=== PATIENT | female | born 1965 | race Caucasian/White ===

== ENCOUNTER 2017-08-14 11:30 | Inpatient (IN) | payer OTHER ==
[~2017-08-14] VITALS: Ht 170.2 cm; Wt 138.4 kg
[2017-08-14 13:17] LABS: APPEARANCE SL.HAZY ((CLEAR)); BILIRUBIN NEGATIVE; BLOOD SMALL; COLOR YELLOW ((YELLOW)); GLUCOSE (STRIP) NEGATIVE; KETONES NEGATIVE; LEUKOCYTES MODERATE; NITRITE POSITIVE; PROTEIN (STRIP) 30; SPECIFIC GRAVITY 1.018 (1.000-1.030); UROBILINOGEN 0.2 MG/DL (0.2-1.0)
[2017-08-14 13:32] LABS: BACTERIA 2+ /HPF; EPITHELIAL CELLS RARE /HPF; HYALINE CASTS 0-5 /LPF; MUCUS TRACE /LPF; WHITE BLOOD CELLS TNTC /HPF (0-5)
[2017-08-14 13:39] LABS: HEMATOCRIT 43.7 % (36.0-46.0); HEMOGLOBIN 15.1 G/DL (11.9-15.5); MCH 31.5 PG (29.0-34.0); MCHC 34.6 G/DL (30.0-36.0); PLATELET COUNT 231 K/uL (156-360); RBC DIS.WIDTH-CV 12.6 % (11.8-14.6); RBC DIS.WIDTH-SD 41.8 % (39-53); WHITE BLOOD COUNT 7.7 K/uL (4.1-10.2)
[2017-08-14 13:51] LABS: CHLORIDE 104 mEq/L (99-109); SODIUM 141 mEq/L (136-147)
[2017-08-14 13:53] LABS: GLUCOSE 84 mg/dL (70-99)
[2017-08-14 13:57] LABS: CREATININE 0.8 mg/dL (0.6-1.3); GFR ESTIMATE (CALCULATED) > 59 mL/min/
[2017-08-14 13:58] LABS: UREA NITROGEN (BUN) 16 mg/dL (9-23)
[2017-08-14 14:18] LABS: ERTH.SED.RATE 56 MM/HR (0-30)
[2017-08-14] MEDS ORDERED: TERBINAFINE HC250 MG PO (17:07)
[2017-08-14] MEDS ORDERED: IBUPROFEN800 MG PO (17:07)
[2017-08-14] MEDS ORDERED: VENTOLIN HFA18 GM IH (17:08)
[2017-08-14] MEDS ORDERED: LEVOTHYROXINE100 MCG PO (17:08)
[2017-08-14] MEDS ORDERED: METHADONE H5 MG/5 ML PO (17:11)
[2017-08-14 20:30] VITALS: BP 141/65
[2017-08-14 21:01] LABS: FOLIC ACID (FOLATE) 7.9 NG/ML (5.0-22.0)
[2017-08-15 00:07] VITALS: BP 142/81
[2017-08-15 04:34] VITALS: BP 142/85
[2017-08-15 06:51] LABS: BASOPHIL (%) 0.3 % (0-1); EOSINOPHIL (%) 2.6 % (0-5); EOSINOPHIL COUNT 0.2 K/uL (0-0.3); HEMOGLOBIN 13.5 G/DL (11.9-15.5); IMMATURE GRANULOCYTE (%) 0.3 % (0.0-0.7); LYMPHOCYTE (%) 31.4 % (15-42); MCH 29.9 PG (29.0-34.0); MCHC 32.1 G/DL (30.0-36.0); MCV 92.9 FL (83-99); MONOCYTE (%) 8.9 % (3-12); MONOCYTE COUNT 0.6 K/uL (0-0.8); NEUTROPHIL (%) 56.5 % (45-76); NEUTROPHIL COUNT 3.6 K/uL (1.8-6.4); PLATELET COUNT 202 K/uL (156-360); RBC DIS.WIDTH-CV 12.8 % (11.8-14.6); RBC DIS.WIDTH-SD 43.8 % (39-53); RED BLOOD COUNT 4.52 M/uL (3.80-5.20); WHITE BLOOD COUNT 6.4 K/uL (4.1-10.2)
[2017-08-15 07:14] LABS: ALBUMIN 3.9 G/DL (3.2-4.8); ALKALINE PHOSPHATASE 64 IU/L (3-129); ALT (GPT) 21 IU/L (3-49); AST (GOT) 21 IU/L (2-34); CHLORIDE 104 MEQ/L (99-109); CREATININE 0.8 MG/DL (0.6-1.3); GFR ESTIMATE (CALCULATED) > 59 mL/min/; POTASSIUM 4.4 MEQ/L (3.7-5.4); SODIUM 141 MEQ/L (136-147); TOTAL BILIRUBIN 0.4 MG/DL (0.0-1.0); TOTAL PROTEIN 6.6 G/DL (6.4-8.3); UREA NITROGEN (BUN) 17 mg/dL (9-23)
[2017-08-15 07:18] LABS: GLUCOSE 106 mg/dL (70-99)
[2017-08-15 09:37] LABS: LYME DISEASE SEROLOGY SCREEN NEGATIVE (NEGATIVE)
[2017-08-15 11:16] VITALS: BP 132/81
[2017-08-15 16:29] VITALS: BP 141/78
[2017-08-15 19:33] VITALS: BP 129/78
[2017-08-15 21:01] LABS: CSF PROTEIN 65 mg/dL (15-45)
[2017-08-15 21:05] LABS: APPEARANCE CLEAR, COLORLESS; CSF TUBE NUMBER TUBE #4; RED CELL COUNT 0 /MM^3 (0-1); WHITE CELL COUNT 10 /MM^3 (0-5)
[2017-08-15 21:06] LABS: GLUCOSE, CSF 77 mg/dL (40-80)
[2017-08-15 22:54] LABS: CSF EOSINOPHILS 0 % (0-25); MONONUCLEAR WBC'S 100 % (50-90); POLYNUCLEAR WBC'S 0 % (0-3)
[2017-08-15 23:36] VITALS: BP 146/72
[2017-08-16 04:03] VITALS: BP 125/84
[2017-08-16 06:04] LABS: BASOPHIL (%) 0.6 % (0-1); EOSINOPHIL (%) 3.4 % (0-5); EOSINOPHIL COUNT 0.2 K/uL (0-0.3); HEMATOCRIT 43.1 % (36.0-46.0); HEMOGLOBIN 14.1 G/DL (11.9-15.5); IMMATURE GRANULOCYTE (%) 0.4 % (0.0-0.7); LYMPHOCYTE (%) 40.1 % (15-42); LYMPHOCYTE COUNT 2.7 K/uL (1.0-2.8); MCH 30.8 PG (29.0-34.0); MCHC 32.7 G/DL (30.0-36.0); MCV 94.1 FL (83-99); MONOCYTE (%) 9.1 % (3-12); MONOCYTE COUNT 0.6 K/uL (0-0.8); NEUTROPHIL (%) 46.4 % (45-76); NEUTROPHIL COUNT 3.1 K/uL (1.8-6.4); PLATELET COUNT 202 K/uL (156-360); RBC DIS.WIDTH-CV 12.8 % (11.8-14.6); RBC DIS.WIDTH-SD 44.3 % (39-53); RED BLOOD COUNT 4.58 M/uL (3.80-5.20); WHITE BLOOD COUNT 6.7 K/uL (4.1-10.2)
[2017-08-16 06:28] LABS: CHLORIDE 101 MEQ/L (99-109); CREATININE 0.8 MG/DL (0.6-1.3); GFR ESTIMATE (CALCULATED) > 59 mL/min/; GLUCOSE 116 mg/dL (70-99); POTASSIUM 4.2 MEQ/L (3.7-5.4); SODIUM 136 MEQ/L (136-147); UREA NITROGEN (BUN) 17 mg/dL (9-23)
[2017-08-16 07:55] VITALS: BP 139/71
[2017-08-16 16:04] VITALS: BP 178/77
[2017-08-16 19:35] VITALS: BP 156/82
[2017-08-16 23:32] VITALS: BP 139/88
[2017-08-17 04:37] VITALS: BP 123/78
[2017-08-17 07:31] VITALS: BP 172/81
[2017-08-17 11:53] VITALS: BP 176/75
[2017-08-17 15:31] VITALS: BP 122/66
[2017-08-17 19:21] VITALS: BP 158/88
[2017-08-17 23:19] VITALS: BP 142/75
[2017-08-18 03:34] VITALS: BP 133/87
[2017-08-18 05:45] LABS: BASOPHIL (%) 0.1 % (0-1); EOSINOPHIL (%) 0 % (0-5); HEMATOCRIT 40.6 % (36.0-46.0); IMMATURE GRANULOCYTE (%) 1.3 % (0.0-0.7); LYMPHOCYTE (%) 12.2 % (15-42); LYMPHOCYTE COUNT 1.2 K/uL (1.0-2.8); MCH 29.9 PG (29.0-34.0); MCV 93.3 FL (83-99); MONOCYTE (%) 2.7 % (3-12); MONOCYTE COUNT 0.3 K/uL (0-0.8); NEUTROPHIL (%) 83.7 % (45-76); PLATELET COUNT 208 K/uL (156-360); RBC DIS.WIDTH-CV 12.4 % (11.8-14.6); RBC DIS.WIDTH-SD 42.7 % (39-53); RED BLOOD COUNT 4.35 M/uL (3.80-5.20); WHITE BLOOD COUNT 9.5 K/uL (4.1-10.2)
[2017-08-18 06:22] LABS: ALBUMIN 3.8 G/DL (3.2-4.8); ALKALINE PHOSPHATASE 58 IU/L (3-129); ALT (GPT) 19 IU/L (3-49); AST (GOT) 14 IU/L (2-34); CHLORIDE 104 MEQ/L (99-109); CREATININE 0.7 MG/DL (0.6-1.3); GFR ESTIMATE (CALCULATED) > 59 mL/min/; GLUCOSE 145 mg/dL (70-99); POTASSIUM 4.6 MEQ/L (3.7-5.4); SODIUM 139 MEQ/L (136-147); TOTAL PROTEIN 6.8 G/DL (6.4-8.3); UREA NITROGEN (BUN) 18 mg/dL (9-23)
[2017-08-18 06:28] LABS: TOTAL BILIRUBIN 0.3 MG/DL (0.0-1.0)
[2017-08-18 07:20] VITALS: BP 164/81
[2017-08-18 12:08] VITALS: BP 136/82
[2017-08-18 21:36] VITALS: BP 165/70
[2017-08-18 23:33] VITALS: BP 131/60
[2017-08-19 04:21] VITALS: BP 116/56
[2017-08-19 06:18] LABS: BASOPHIL (%) 0.1 % (0-1); EOSINOPHIL (%) 0 % (0-5); HEMATOCRIT 32.7 % (36.0-46.0); IMMATURE GRANULOCYTE (%) 0.7 % (0.0-0.7); LYMPHOCYTE (%) 15.7 % (15-42); LYMPHOCYTE COUNT 1.8 K/uL (1.0-2.8); MCH 30.5 PG (29.0-34.0); MCHC 32.1 G/DL (30.0-36.0); MCV 95.1 FL (83-99); MONOCYTE (%) 8.6 % (3-12); NEUTROPHIL (%) 74.9 % (45-76); NEUTROPHIL COUNT 8.5 K/uL (1.8-6.4); PLATELET COUNT 173 K/uL (156-360); RBC DIS.WIDTH-CV 12.7 % (11.8-14.6); RBC DIS.WIDTH-SD 43.9 % (39-53); WHITE BLOOD COUNT 11.4 K/uL (4.1-10.2)
[2017-08-19 06:21] LABS: CHLORIDE 106 MEQ/L (99-109); CREATININE 0.6 MG/DL (0.6-1.3); GFR ESTIMATE (CALCULATED) > 59 mL/min/; GLUCOSE 154 mg/dL (70-99); POTASSIUM 4.4 MEQ/L (3.7-5.4); SODIUM 140 MEQ/L (136-147); UREA NITROGEN (BUN) 15 mg/dL (9-23)
[2017-08-19 06:26] LABS: HEMOGLOBIN 10.5 G/DL (11.9-15.5); RED BLOOD COUNT 3.44 M/uL (3.80-5.20)
[2017-08-19 07:17] VITALS: BP 105/51
[2017-08-19 15:12] VITALS: BP 138/62
[2017-08-19 20:05] VITALS: BP 123/58
[2017-08-19 23:31] VITALS: BP 139/69
[2017-08-20 04:03] VITALS: BP 145/71
[2017-08-20 06:32] LABS: CHLORIDE 103 MEQ/L (99-109); CREATININE 0.7 MG/DL (0.6-1.3); GFR ESTIMATE (CALCULATED) > 59 mL/min/; GLUCOSE 132 mg/dL (70-99); POTASSIUM 4.8 MEQ/L (3.7-5.4); SODIUM 139 MEQ/L (136-147); UREA NITROGEN (BUN) 15 mg/dL (9-23)
[2017-08-20 07:49] VITALS: BP 166/87
[2017-08-20 12:08] VITALS: BP 161/75
[2017-08-20 16:14] LABS: BASOPHIL (%) 0.2 % (0-1); EOSINOPHIL (%) 0 % (0-5); HEMOGLOBIN 11.9 G/DL (11.9-15.5); IMMATURE GRANULOCYTE (%) 1.3 % (0.0-0.7); LYMPHOCYTE (%) 10.3 % (15-42); LYMPHOCYTE COUNT 1.1 K/uL (1.0-2.8); MCH 30.1 PG (29.0-34.0); MCHC 33.1 G/DL (30.0-36.0); MONOCYTE (%) 6.4 % (3-12); MONOCYTE COUNT 0.7 K/uL (0-0.8); NEUTROPHIL (%) 81.8 % (45-76); NEUTROPHIL COUNT 8.9 K/uL (1.8-6.4); PLATELET COUNT 188 K/uL (156-360); RBC DIS.WIDTH-CV 12.4 % (11.8-14.6); RBC DIS.WIDTH-SD 41.4 % (39-53); RED BLOOD COUNT 3.95 M/uL (3.80-5.20); WHITE BLOOD COUNT 10.8 K/uL (4.1-10.2)
[2017-08-20 16:20] VITALS: BP 147/91
[2017-08-20 16:25] LABS: MCV 91.1 FL (83-99)
[2017-08-20 19:46] VITALS: BP 130/68
[2017-08-20 23:42] VITALS: BP 133/73
[2017-08-21 04:31] VITALS: BP 137/63
[2017-08-21 05:47] LABS: BASOPHIL (%) 0.2 % (0-1); EOSINOPHIL (%) 0 % (0-5); HEMATOCRIT 35.3 % (36.0-46.0); HEMOGLOBIN 11.6 G/DL (11.9-15.5); IMMATURE GRANULOCYTE (%) 1.7 % (0.0-0.7); LYMPHOCYTE (%) 12.3 % (15-42); LYMPHOCYTE COUNT 1.4 K/uL (1.0-2.8); MCH 30.1 PG (29.0-34.0); MCHC 32.9 G/DL (30.0-36.0); MCV 91.7 FL (83-99); MONOCYTE (%) 6.1 % (3-12); MONOCYTE COUNT 0.7 K/uL (0-0.8); NEUTROPHIL (%) 79.7 % (45-76); NEUTROPHIL COUNT 8.8 K/uL (1.8-6.4); NRBC (%) 0.2 /100 WBC (0-0); PLATELET COUNT 197 K/uL (156-360); RBC DIS.WIDTH-CV 12.5 % (11.8-14.6); RBC DIS.WIDTH-SD 41.9 % (39-53); RED BLOOD COUNT 3.85 M/uL (3.80-5.20)
[2017-08-21 06:26] LABS: CHLORIDE 102 MEQ/L (99-109); CREATININE 0.6 MG/DL (0.6-1.3); GFR ESTIMATE (CALCULATED) > 59 mL/min/; SODIUM 137 MEQ/L (136-147); UREA NITROGEN (BUN) 15 mg/dL (9-23)
[2017-08-21 06:29] LABS: GLUCOSE 210 mg/dL (70-99)
[2017-08-21 08:05] VITALS: BP 131/69
[2017-08-21 12:28] VITALS: BP 132/763
[2017-08-21 15:42] VITALS: BP 141/69
[2017-08-21 19:24] VITALS: BP 129/74
[2017-08-21 23:56] VITALS: BP 128/75
[2017-08-22 03:09] VITALS: BP 124/63
[2017-08-22 07:56] VITALS: BP 140/83
[2017-08-22 12:35] VITALS: BP 147/78
[2017-08-22 15:56] VITALS: BP 157/88
[2017-08-22 19:48] VITALS: BP 122/57
[2017-08-22 23:27] VITALS: BP 157/81
[2017-08-23 03:24] VITALS: BP 139/81
[2017-08-23 07:24] VITALS: BP 158/88
[2017-08-23 12:05] VITALS: BP 153/91
[2017-08-23 15:41] VITALS: BP 163/87
[2017-08-23 23:51] VITALS: BP 151/74
[2017-08-24 04:00] VITALS: BP 172/87
[2017-08-24 08:28] VITALS: BP 142/82
[2017-08-24 09:24] LABS: HEMATOCRIT 41.4 % (36.0-46.0); MCH 30.1 PG (29.0-34.0); MCHC 33.1 G/DL (30.0-36.0); NRBC (%) 0.1 /100 WBC (0-0); RBC DIS.WIDTH-CV 12.6 % (11.8-14.6); RBC DIS.WIDTH-SD 41.4 % (39-53); RED BLOOD COUNT 4.55 M/uL (3.80-5.20); WHITE BLOOD COUNT 14.7 K/uL (4.1-10.2)
[2017-08-24 09:26] LABS: HEMOGLOBIN 13.7 G/DL (11.9-15.5); PLATELET COUNT 310 K/uL (156-360)
[2017-08-24 09:43] LABS: ABS NEUTROPHIL COUNT 12.4; ANISOCYTOSIS 1+; BAND NEUTROPHILS 4.4 % (0-8.0); EOSINOPHIL ABS CT 0; METAMYELOCYTES 3.5 %; MICROCYTOSIS 1+; MONOCYTES 4.4 % (0-9.0); PLAT.SUFFICIENCY ADEQUATE; POIKILOCYTOSIS 1+; SEG.NEUTROPHILS 79.7 % (46.0-76.0); SPHEROCYTES 1+
[2017-08-24 12:10] VITALS: BP 139/83
[2017-08-24 15:38] VITALS: BP 162/88
[2017-08-24 19:20] VITALS: BP 180/82
[2017-08-24 20:32] LABS: APPEARANCE CLEAR ((CLEAR)); BILIRUBIN NEGATIVE; BLOOD SMALL; COLOR STRAW ((YELLOW)); GLUCOSE (STRIP) >=500; KETONES NEGATIVE; LEUKOCYTES NEGATIVE; NITRITE NEGATIVE; PROTEIN (STRIP) NEGATIVE; SPECIFIC GRAVITY 1.029 (1.000-1.030); UROBILINOGEN 0.2 MG/DL (0.2-1.0)
[2017-08-24 20:47] LABS: BACTERIA NONE SEEN /HPF; EPITHELIAL CELLS NONE SEEN /HPF; MUCUS NONE SEEN /LPF; RED BLOOD CELLS 15-20 /HPF (0-5); UCUL ADDED? NO; WHITE BLOOD CELLS 0-5 /HPF (0-5)
[2017-08-24 23:40] VITALS: BP 173/82
[2017-08-25 04:30] VITALS: BP 150/74
[2017-08-25 06:38] LABS: HEMATOCRIT 40.2 % (36.0-46.0); HEMOGLOBIN 13.2 G/DL (11.9-15.5); MCH 29.9 PG (29.0-34.0); MCHC 32.8 G/DL (30.0-36.0); NRBC (%) 0.2 /100 WBC (0-0); PLATELET COUNT 296 K/uL (156-360); RBC DIS.WIDTH-CV 12.5 % (11.8-14.6); RBC DIS.WIDTH-SD 41.8 % (39-53); RED BLOOD COUNT 4.42 M/uL (3.80-5.20); WHITE BLOOD COUNT 16.2 K/uL (4.1-10.2)
[2017-08-25 07:19] LABS: CHLORIDE 97 MEQ/L (99-109); CREATININE 0.8 MG/DL (0.6-1.3); GFR ESTIMATE (CALCULATED) > 59 mL/min/; GLUCOSE 240 mg/dL (70-99); SODIUM 135 MEQ/L (136-147)
[2017-08-25 07:26] LABS: POTASSIUM 5.2 MEQ/L (3.7-5.4); UREA NITROGEN (BUN) 31 mg/dL (9-23)
[2017-08-25 07:46] VITALS: BP 160/84
[2017-08-25 08:17] LABS: ABS NEUTROPHIL COUNT 11.6; ANISOCYTOSIS 1+; ATYPICAL LYMPHOCYTE 4.6 %; BAND NEUTROPHILS 0.9 % (0-8.0); EOSINOPHIL ABS CT 0; LYMPHOCYTES 9.3 % (15.0-45.0); MACROCYTES 1+; METAMYELOCYTES 1.8 %; MONOCYTES 10.2 % (0-9.0); MYELOCYTES 2.8 %; OVALOCYTES 1+; PLAT.SUFFICIENCY ADEQUATE; POLYCHROMASIA 3+; SEG.NEUTROPHILS 70.4 % (46.0-76.0)
[2017-08-25 11:03] LABS: HEMOGLOBIN A1c (GLYCOHEMOGLOB) 6.1 % (Below 5.7)
[2017-08-25 11:11] VITALS: BP 158/81
[2017-08-25 15:34] VITALS: BP 154/85
[2017-08-25 19:23] VITALS: BP 195/98
[2017-08-25 23:28] VITALS: BP 139/71
[2017-08-26 05:49] VITALS: BP 138/72
[2017-08-26 06:40] LABS: HEMATOCRIT 38.8 % (36.0-46.0); HEMOGLOBIN 12.7 G/DL (11.9-15.5); MCH 30.8 PG (29.0-34.0); MCHC 32.7 G/DL (30.0-36.0); MCV 94.2 FL (83-99); PLATELET COUNT 268 K/uL (156-360); RED BLOOD COUNT 4.12 M/uL (3.80-5.20); WHITE BLOOD COUNT 15.5 K/uL (4.1-10.2)
[2017-08-26 07:06] LABS: CHLORIDE 97 MEQ/L (99-109); CREATININE 0.6 MG/DL (0.6-1.3); GFR ESTIMATE (CALCULATED) > 59 mL/min/; GLUCOSE 187 mg/dL (70-99); POTASSIUM 5.4 MEQ/L (3.7-5.4); SODIUM 135 MEQ/L (136-147); UREA NITROGEN (BUN) 31 mg/dL (9-23)
[2017-08-26 07:25] LABS: ABS NEUTROPHIL COUNT 13.9; BAND NEUTROPHILS 1.7 % (0-8.0); EOSINOPHIL ABS CT 0; LYMPHOCYTES 4.4 % (15.0-45.0); METAMYELOCYTES 1.8 %; MONOCYTES 4.4 % (0-9.0); NUCLEATED RBC'S 0.9; PLAT.SUFFICIENCY ADEQUATE; SEG.NEUTROPHILS 87.7 % (46.0-76.0)
[2017-08-26 07:29] VITALS: BP 165/88
[2017-08-26 11:32] VITALS: BP 170/88
[2017-08-26 16:13] VITALS: BP 180/80
[2017-08-26 19:12] VITALS: BP 156/68
[2017-08-26 23:23] VITALS: BP 129/72
[2017-08-27 04:48] VITALS: BP 160/76
[2017-08-27 05:50] LABS: HEMATOCRIT 37.5 % (36.0-46.0); HEMOGLOBIN 12.3 G/DL (11.9-15.5); MCH 30.1 PG (29.0-34.0); MCHC 32.8 G/DL (30.0-36.0); MCV 91.9 FL (83-99); PLATELET COUNT 246 K/uL (156-360); RBC DIS.WIDTH-SD 43.2 % (39-53); RED BLOOD COUNT 4.08 M/uL (3.80-5.20); WHITE BLOOD COUNT 14.7 K/uL (4.1-10.2)
[2017-08-27 06:17] LABS: CHLORIDE 98 MEQ/L (99-109); CREATININE 0.5 MG/DL (0.6-1.3); GFR ESTIMATE (CALCULATED) > 59 mL/min/; GLUCOSE 174 mg/dL (70-99); POTASSIUM 5.1 MEQ/L (3.7-5.4); SODIUM 135 MEQ/L (136-147); UREA NITROGEN (BUN) 25 mg/dL (9-23)
[2017-08-27 06:37] LABS: ABS NEUTROPHIL COUNT 13.1; ATYPICAL LYMPHOCYTE 0.9 %; EOSINOPHIL ABS CT 0; HYPERSEGMENTATION 3+; LYMPHOCYTES 5.3 % (15.0-45.0); METAMYELOCYTES 1.8 %; MONOCYTES 1.7 % (0-9.0); MYELOCYTES 0.9 %; PLAT.SUFFICIENCY ADEQUATE; SEG.NEUTROPHILS 89.4 % (46.0-76.0)
[2017-08-27 07:41] VITALS: BP 141/77
[2017-08-27 16:34] VITALS: BP 161/69
[2017-08-27 19:37] VITALS: BP 143/65
[2017-08-27 23:26] VITALS: BP 140/71
[2017-08-28 03:40] VITALS: BP 143/71
[2017-08-28 05:57] LABS: BASOPHIL (%) 0.3 % (0-1); BASOPHIL COUNT 0.1 K/uL (0-0.1); EOSINOPHIL (%) 0 % (0-5); HEMATOCRIT 35.3 % (36.0-46.0); HEMOGLOBIN 11.7 G/DL (11.9-15.5); IMMATURE GRANULOCYTE (%) 4.7 % (0.0-0.7); LYMPHOCYTE (%) 19.3 % (15-42); LYMPHOCYTE COUNT 3.1 K/uL (1.0-2.8); MCH 30.5 PG (29.0-34.0); MCHC 33.1 G/DL (30.0-36.0); MCV 92.2 FL (83-99); MONOCYTE (%) 8.7 % (3-12); MONOCYTE COUNT 1.4 K/uL (0-0.8); NEUTROPHIL COUNT 10.9 K/uL (1.8-6.4); PLATELET COUNT 236 K/uL (156-360); RBC DIS.WIDTH-CV 13.1 % (11.8-14.6); RBC DIS.WIDTH-SD 44.4 % (39-53); RED BLOOD COUNT 3.83 M/uL (3.80-5.20); WHITE BLOOD COUNT 16.2 K/uL (4.1-10.2)
[2017-08-28 06:20] LABS: CHLORIDE 100 MEQ/L (99-109); CREATININE 0.5 MG/DL (0.6-1.3); GFR ESTIMATE (CALCULATED) > 59 mL/min/; GLUCOSE 123 mg/dL (70-99); POTASSIUM 4.5 MEQ/L (3.7-5.4); SODIUM 136 MEQ/L (136-147); UREA NITROGEN (BUN) 23 mg/dL (9-23)
[2017-08-28 07:15] VITALS: BP 136/68
[2017-08-28 11:07] VITALS: BP 144/80
[2017-08-28 20:36] VITALS: BP 139/72
[2017-08-29 01:38] VITALS: BP 140/70
[2017-08-29 04:42] VITALS: BP 142/68
[2017-08-29 08:56] VITALS: BP 139/71
[2017-08-29 18:04] VITALS: BP 137/82
[2017-08-29 20:46] VITALS: BP 145/84
[2017-08-30 01:45] VITALS: BP 140/78
[2017-08-30 05:01] VITALS: BP 143/80
[2017-08-30 07:28] VITALS: BP 140/66
[2017-08-30 20:02] VITALS: BP 126/86
[2017-08-30 23:54] VITALS: BP 177/84
[2017-08-31 04:37] VITALS: BP 135/85
[2017-08-31 07:21] VITALS: BP 144/77
[2017-08-31 11:09] VITALS: BP 144/76
[2017-08-31 15:57] VITALS: BP 146/73
[2017-08-31 20:08] VITALS: BP 135/61
[2017-08-31 23:40] VITALS: BP 128/70
[2017-09-01 05:09] VITALS: BP 147/70
[2017-09-01 08:31] VITALS: BP 141/84
[2017-09-01] MEDS ORDERED: NIFEDIPINE20 MG PO (14:03)
[2017-09-01] MEDS ORDERED: BISACODYL5 MG PO (14:03)
[2017-09-01] MEDS ORDERED: Salonpas 4% Patch TD (14:04)
[2017-09-01] MEDS ORDERED: TYLENOL REGULA325 MG PO (14:05)
[2017-09-01 15:44] VITALS: BP 42/72
[2017-09-01 19:35] VITALS: BP 129/71
[2017-09-01 23:36] VITALS: BP 136/76
[2017-09-02 03:55] VITALS: BP 148/70
[2017-09-02 07:23] VITALS: BP 132/76
[2017-09-02 11:57] VITALS: BP 124/76
[2017-09-02 16:00] VITALS: BP 133/74
[2017-09-02 23:28] VITALS: BP 123/64
[2017-09-03 08:06] VITALS: BP 125/67
[2017-09-03 15:49] VITALS: BP 120/64
[2017-09-03 19:10] VITALS: BP 127/69
[2017-09-03 23:10] VITALS: BP 118/71
[2017-09-04 06:41] LABS: CHLORIDE 99 MEQ/L (99-109); CREATININE 0.5 MG/DL (0.6-1.3); GFR ESTIMATE (CALCULATED) > 59 mL/min/; GLUCOSE 112 mg/dL (70-99); POTASSIUM 4.4 MEQ/L (3.7-5.4); SODIUM 139 MEQ/L (136-147); UREA NITROGEN (BUN) 13 mg/dL (9-23)
[2017-09-04 06:52] LABS: HEMATOCRIT 35.5 % (36.0-46.0); HEMOGLOBIN 11.3 G/DL (11.9-15.5); MCH 30.5 PG (29.0-34.0); MCHC 31.8 G/DL (30.0-36.0); MCV 95.9 FL (83-99); RBC DIS.WIDTH-CV 13.9 % (11.8-14.6); RBC DIS.WIDTH-SD 49.1 % (39-53); WHITE BLOOD COUNT 4.9 K/uL (4.1-10.2)
[2017-09-04 07:45] VITALS: BP 147/88
[2017-09-04 09:26] LABS: PLAT.SUFFICIENCY ADEQUATE
[2017-09-04 10:36] LABS: PLATELET COUNT 148 K/uL (156-360)
[2017-09-04 14:28] VITALS: BP 120/76
== END 2017-09-04 14:13 | DRG 29 ==
LOC: EME 11:30 → 3EAST 17:02 → EDOF 17:02 → ENRESERV 17:04 → 3EAST 19:45
PROVIDERS: Hospitalist; Internal Medicine; Neurological Surgery; Nurse Practitioner Family; Specialist; Student in an Organized Health Care Education/Training Program
PROC: 009U3ZX Drainage of Spinal Canal, Percutaneous Approach, Diagnostic (ICD-10-PCS; principal; 2017-08-15)
PROC: 00BT0ZZ Excision of Spinal Meninges, Open Approach (ICD-10-PCS; 2017-08-18)
DX: D32.1 Benign neoplasm of spinal meninges (principal); N39.0 Urinary tract infection, site not specified; F11.20 Opioid dependence, uncomplicated; M48.04 Spinal stenosis, thoracic region; B96.1 Klebsiella pneumoniae [K. pneumoniae] as the cause of diseases classified elsewhere; M21.371 Foot drop, right foot; R29.6 Repeated falls; D72.829 Elevated white blood cell count, unspecified; T38.0X5A Adverse effect of glucocorticoids and synthetic analogues, initial encounter; I10 Essential (primary) hypertension; E03.9 Hypothyroidism, unspecified; K59.00 Constipation, unspecified; G89.4 Chronic pain syndrome; F17.200 Nicotine dependence, unspecified, uncomplicated; E66.01 Morbid (severe) obesity due to excess calories; Z68.42 Body mass index [BMI] 45.0-49.9, adult; Z75.1 Person awaiting admission to adequate facility elsewhere; Z91.81 History of falling
CPT/HCPCS: 70553; 71045; 71046; 72020; 72156; 72157; 74018; 76000; 80048; 80053; 81003; 82607; 82746; 82945; 82948; 83036; 83873 90; 83916 90; 84157; 85025; 85027; 85048; 85651; 86038; 86618; 86850; 86900; 86901; 86920; 87040; 87070; 87077; 87086; 87186; 87205; 88108; 88304; 88305; 89051; 93970; 94640; 97530 GO; 97530 GP; 99202; 99281; 99285; A6214; J0131; J0330; J0360; J0690; J0692; J0696; J1100; J1170; J1644; J1650; J1815; J1885; J2060; J2250; J2405; J2930; J3010; J3420; J3480; J7030; J7040; J7509; P9047

== ENCOUNTER 2017-09-04 19:41 | Inpatient (IN) | payer OTHER ==
[~2017-09-04] VITALS: Ht 170.2 cm; Wt 140.7 kg
[~2017-09-04 19:41] MED LIST: BISACODYL5 MG PO; IBUPROFEN800 MG PO; LEVOTHYROXINE100 MCG PO; METHADONE H5 MG/5 ML PO; NIFEDIPINE20 MG PO; Salonpas 4% Patch TD; TERBINAFINE HC250 MG PO; TYLENOL REGULA325 MG PO; VENTOLIN HFA18 GM IH
[2017-09-04 20:19] VITALS: BP 144/79
[2017-09-04 23:25] VITALS: BP 124/79
[2017-09-05 08:02] VITALS: BP 142/88
[2017-09-05 16:06] VITALS: BP 127/67
[2017-09-05 23:14] VITALS: BP 132/71
[2017-09-06 07:41] VITALS: BP 125/72
[2017-09-06 15:36] VITALS: BP 123/70
[2017-09-06 23:27] VITALS: BP 116/70
[2017-09-07 08:29] VITALS: BP 126/69
[2017-09-07 16:16] VITALS: BP 131/72
[2017-09-07 23:10] VITALS: BP 119/63
[2017-09-08 08:24] VITALS: BP 131/63
[2017-09-08] MEDS ORDERED: NICOTINE PATCH1 EAC1 TD (15:30)
[2017-09-08 16:08] VITALS: BP 126/74
== END 2017-09-08 17:34 | DRG 948 ==
LOC: 3EAST 19:41
PROVIDERS: Hospitalist
DX: R53.1 Weakness (principal); Z75.1 Person awaiting admission to adequate facility elsewhere; G89.29 Other chronic pain; F11.20 Opioid dependence, uncomplicated; I10 Essential (primary) hypertension; E03.9 Hypothyroidism, unspecified; F17.200 Nicotine dependence, unspecified, uncomplicated; E66.01 Morbid (severe) obesity due to excess calories; Z68.42 Body mass index [BMI] 45.0-49.9, adult; Z86.018 Personal history of other benign neoplasm
CPT/HCPCS: 82948; 97530 GP; 99202; J1644